=== PATIENT | male | born 1955 | race Caucasian/White ===

== ENCOUNTER → 2016-07-02 | Outpatient (CLI) | payer OTHER ==
--- NOTE | 2016-07-02 13:57 | KCIC ---
PROCEDURE MR of the right shoulder HISTORY Chronic right shoulder pain. TECHNIQUE Standard noncontrast images are obtained. COMPARISON None FINDINGS The acromioclavicular joint is intact with mild hypertrophy and edema at the joint but no significant hypertrophy. There is an ununited os acromiale (mesoacromion) with mild degenerative changes at the synchondrosis. There is some thickening and increased signal within the rotator cuff compatible with tendinosis. Deep linear undersurface tear of the anterior supraspinatus tendon footprint, measures 1 cm AP diameter and extends across 90 percent of the tendon depth. Mild partial subscapularis tendon tear. Only trace subdeltoid bursal fluid. No significant glenohumeral joint effusion. There is some degenerative labral signal but no clear-cut labral tear or detachment. The biceps tendon is thickened and ill-defined compatible with tendinosis. Mild medial subluxation of the tendon perched over the lesser tuberosity. No bone lesion or acute fracture. No acute soft tissue abnormality. Mild cystic change at the anterior greater tuberosity. IMPRESSION 1. Rotator cuff tendinosis. Small but deep undersurface tear of the anterior supraspinatus footprint. Partial subscapularis tendon tear. 2. Biceps tendinosis with mild medial subluxation. Electronically signed by: Bon Mcgee MD (Jul 02, 2016 13:56:18)
== END | disposition home or self-care (01) ==
LOC: KCIC MRI 12:57
PROVIDERS: ATTEND Nurse Practitioner Primary Care
DX: M25.511 Pain in right shoulder (principal); G89.29 Other chronic pain; M75.101 Unspecified rotator cuff tear or rupture of right shoulder, not specified as traumatic
CPT/HCPCS: 73221

== ENCOUNTER → 2017-05-06 | Outpatient (CLI) | payer OTHER | END | disposition home or self-care (01) | LOC: KCIC MRI 15:50 | DX: S69.90XD Unspecified injury of unspecified wrist, hand and finger(s), subsequent encounter (principal); W34.09XD Accidental discharge from other specified firearms, subsequent encounter | CPT/HCPCS: 73221 ==

== ENCOUNTER → 2018-07-10 | Outpatient (CLI) | payer OTHER ==
--- NOTE | 2018-07-10 17:34 | KCIC ---
EXAM: Cervical spine MRI without contrast. HISTORY: Radiculopathy. TECHNIQUE: Multiplanar, multisequence magnetic resonance imaging of the cervical spine was performed without contrast. COMPARISON: None. FINDINGS: There is mild anterolisthesis of C6 on C7. There is chronic mild decreased vertebral body height at T1, likely developmental or degenerative. There is no acute or subacute fracture. There is no suspicious osseous lesion. There are few osseous hemangiomas, the largest of which is seen within C7. No cervical or upper thoracic spinal cord lesion is seen. The posterior fossa and skull base are unremarkable. At C2-C3, there is mild right facet arthropathy. There is no stenosis. At C3-C4, there is a posterior central disc protrusion. This is superimposed on a disc bulge and endplate line. There is mild bilateral facet arthropathy. There is no stenosis. At C4-C5, there is a disc bulge and endplate remodeling. There is mild bilateral facet arthropathy. There is mild central canal stenosis measuring 9.0 mm in anterior posterior dimension. At C5-C6, there is a disc bulge and endplate remodeling. There is mild bilateral facet arthropathy. There is mild right and moderate left foraminal stenosis. There is mild central canal stenosis measuring 9 mm. There are dilated perivascular spaces within the foraminal and extra foraminal space at this level. At C6-C7, there is a posterior central disc protrusion. There is no stenosis. There is a tiny dilated perivascular space within the left neural foramen. IMPRESSION: 1. Multilevel degenerative change within the cervical spine, described in detail above. This results in mild central canal stenosis at C4-C5 and mild right and moderate left foraminal and mild central canal stenosis at C5-C6. 2. No acute finding. Electronically signed by: Mana Tao MD (07/10/2018 5:31 PM) [id number]
--- NOTE | 2018-07-11 09:26 | KCIC ---
MRI left elbow without contrast dated 07/10/2018 5:00 PM Indication: Left upper extremity numbness . History of biceps tendon rupture. Pain. Comparison: 05/06/2017 Technique: Routine multiplanar multisequence imaging performed. . Findings: Previously described inflammatory changes surrounding the distal biceps tendon have significantly improved. There is some persistent mild increased signal and thinning of the tendon at its radial tuberosity attachment, without full-thickness tear. The musculotendinous junction appears somewhat thickened. There is some fatty replacement of the supinator muscle, new from prior study. Mild increased signal within the brachialis at its ulnar attachment, unchanged. There is increased signal of the common extensor tendon at its lateral epicondylar attachment. Mild linear T2 hyperintense signal within the tendon substance suggesting mild intrasubstance partial tearing. No full-thickness tear. The there is mild increased signal within the radial collateral ligament and lateral ulnar collateral ligament without definite full-thickness tear. Mild increased signal of the common flexor tendon at its medial epicondylar attachment. The medial ulnar collateral ligament is intact. Distal triceps tendon is intact. Mild increased signal of the ulnar nerve throughout its visualized course. No subluxation from the cubital tunnel. There is patchy edema in the dorsal subcutaneous tissues. Bone marrow signal is homogeneous. No marrow edema. Mild hypertrophic change of the elbow. No full-thickness cartilage defect. No joint effusion or loose body. IMPRESSION: 1. Interval improvement in focal tendinopathy and partial-thickness tearing at the biceps tendon insertion. 2. Mild to moderate lateral epicondylitis with mild intrasubstance partial tearing of the common extensor tendon. There may be also some mild partial-thickness tearing of the lateral ulnar collateral ligament and radial collateral ligament. 3. Mild medial epicondylitis. 4. Increased signal and thickening of the ulnar nerve without evidence of subluxation or definite cause for impingement. Consider posttraumatic or inflammatory causes for ulnar neuritis. 4. Electronically signed by: Bon Mcknight MD (07/11/2018 9:23 AM) [id number]
== END | disposition home or self-care (01) ==
LOC: KCIC MRI 15:49
PROVIDERS: ATTEND Family Medicine
DX: S46.212A Strain of muscle, fascia and tendon of other parts of biceps, left arm, initial encounter (principal); M77.12 Lateral epicondylitis, left elbow; M77.02 Medial epicondylitis, left elbow; M48.02 Spinal stenosis, cervical region; M50.123 Cervical disc disorder at C6-C7 level with radiculopathy; M12.88 Other specific arthropathies, not elsewhere classified, other specified site; D18.09 Hemangioma of other sites; X58.XXXA Exposure to other specified factors, initial encounter; Y93.89 Activity, other specified; Y92.89 Other specified places as the place of occurrence of the external cause; Y99.8 Other external cause status
CPT/HCPCS: 72141; 73221

== ENCOUNTER → 2019-04-13 | Outpatient (CLI) | payer OTHER ==
--- NOTE | 2019-04-13 16:11 | KCIC ---
MR of the right knee HISTORY: Right knee pain, anteriorly, around the patella. Pain since September after a fall. TECHNIQUE: Routine multiplanar sequences are obtained. FINDINGS: No evidence of medial meniscal tear. Signal within the lateral meniscus at the body and posterior horn. There is subtle violation of the free margin and undersurface compatible with a small tear. Anterior and posterior cruciate ligaments are intact. Medial collateral ligament is intact. Iliotibial band unremarkable. Fibular collateral ligament, biceps femoris tendon and popliteus tendon are intact. Extensor mechanism is intact. Small joint effusion. Chondral thinning at the medial joint compartment. Chondromalacia at the posterior lateral tibial plateau, moderate to severe. [id number] chondromalacia of the femoral trochlea. No acute fracture. No aggressive bone destruction. Mild edema and fluid within the anterior soft tissues particularly anterior to the patella and patellar tendon. IMPRESSION: 1. Small tear of the lateral meniscus with a degenerative morphology. 2. DJD with chondromalacia. 3. Mild edema/fluid along the anterior knee, compatible with bursitis or inflammation, unless there has been recent trauma. Electronically signed by: Bon Mcgee MD (04/13/2019 4:08 PM) [facility]
== END | disposition home or self-care (01) ==
LOC: KCIC MRI 13:02
PROVIDERS: ATTEND Family Medicine
DX: S83.281A Other tear of lateral meniscus, current injury, right knee, initial encounter (principal); M17.11 Unilateral primary osteoarthritis, right knee; M94.261 Chondromalacia, right knee; M25.461 Effusion, right knee; W19.XXXA Unspecified fall, initial encounter; Y93.89 Activity, other specified; Y92.89 Other specified places as the place of occurrence of the external cause; Y99.8 Other external cause status
CPT/HCPCS: 73721